=== PATIENT | male | born 1985 | race Caucasian/White ===

== ENCOUNTER 2024-06-08 01:07 | Emergency (ER) | payer BC, OTHER ==
[~2024-06-08] VITALS: Ht 182.9 cm; Wt 103.0 kg
[2024-06-08 01:25] VITALS: BP 151/95; PULSE 106; O2SAT 98
[2024-06-08] MEDS: ondansetron 4mg rapidly disintigrating tab PO ONE (01:37)
[2024-06-08] MEDS: mag hydrox/Alum hydrox/simeth 30ml oral suspension PO ONE (01:37)
[2024-06-08] MEDS: LIDOcaine 2% Viscous 15ml cup MM ONE (01:37)
[2024-06-08 01:52] LABS: BASOPHILS # (AUTO) 0.1 X10'3 (0-0.2); BASOPHILS % (AUTO) 0.8 % (0-1); EOSINOPHILS # (AUTO) 0.1 X10'3 (0-0.9); EOSINOPHILS % (AUTO) 1.7 % (0-6); HEMATOCRIT 42.2 % (42.0-52.0); HEMOGLOBIN 14.8 g/dl (14.0-17.9); LYMPHOCYTES # (AUTO) 2.7 X10'3 (1.1-4.8); LYMPHOCYTES % (AUTO) 37.4 % (21-51); MEAN CORPUSCULAR HEMOGLOBIN 32.1 PG (27.0-31.0); MEAN CORPUSCULAR HGB CONC 35.1 g/dL (33.0-36.5); MEAN CORPUSCULAR VOLUME 91.5 FL (78-98); MEAN PLATELET VOLUME 8.4 FL (7.4-10.4); MONOCYTES # (AUTO) 0.4 X10'3 (0-0.9); MONOCYTES % (AUTO) 6.1 % (2-12); NEUTROPHILS # (AUTO) 3.9 X10'3 (1.8-7.7); PLATELET COUNT 245 X10'3 (140-440); RED BLOOD COUNT 4.61 X10'6 (4.70-6.10); RED CELL DISTRIBUTION WIDTH 13.3 % (11.5-14.5); WHITE BLOOD COUNT 7.2 X10'3 (4.5-11.0)
[2024-06-08 01:56] LABS: D-DIMER < 0.19 MG/L FEU (0-0.50)
[2024-06-08 02:04] LABS: ALBUMIN 3.9 G/DL (3.4-5.0); ANION GAP 11 (8-16); BLOOD UREA NITROGEN 20 MG/DL (7-18); BUN/CREATININE RATIO 17.7 (10.0-20.0); CALCIUM 8.5 MG/DL (8.5-10.1); CHLORIDE 106 MMOL/L (99-107); CREATININE 1.13 MG/DL (0.60-1.10); GLUCOSE 138 MG/DL (70-104); POTASSIUM 3.5 MMOL/L (3.5-5.1); SODIUM 143 MMOL/L (135-145); TOTAL CARBON DIOXIDE 26.5 MMOL/L (24-32); eCRCL 96 ML/MIN; eGFR 72 ML/MIN
[2024-06-08 02:08] LABS: PRO BRAIN NATRIURETIC PEPTIDE < 30 PG/ML (0-125)
[2024-06-08 02:36] VITALS: TEMP 98.2
[2024-06-08 02:37] VITALS: RESP 12
== END 2024-06-08 02:43 | disposition home or self-care (01) ==
LOC: ER 01:08
DX: R04.2 Hemoptysis (principal)
CPT/HCPCS: 36415; 71045; 80048; 83880; 84484; 85025; 85379; 93005; 99285; J7030